=== PATIENT | female | born 1995 | race Asian ===

== ENCOUNTER 2018-06-01 02:42 | Emergency (ER) | payer SELFPAY ==
[~2018-06-01] VITALS: Ht 154.9 cm; Wt 45.5 kg
[2018-06-01 02:44] VITALS: BP 143/79
== END 2018-06-01 04:54 | disposition left against medical advice (07) ==
LOC: EMS 02:44
DX: S01.91XA Laceration without foreign body of unspecified part of head, initial encounter (principal); Z53.21 Procedure and treatment not carried out due to patient leaving prior to being seen by health care provider; W22.8XXA Striking against or struck by other objects, initial encounter; Y93.89 Activity, other specified; Y92.89 Other specified places as the place of occurrence of the external cause; Y99.8 Other external cause status